=== PATIENT | male | born 1975 | race Caucasian/White ===

== ENCOUNTER 2022-06-15 15:55 | Emergency (ER) | payer MEDICARE, OTHER ==
[2022-06-15 17:13] LABS: HEMOGLOBIN 13.8 gm/dl (14.0-17.5); RED BLOOD COUNT 4.55 M/UL (4.20-5.50); WHITE BLOOD COUNT 8.7 K/UL (4.5-11.0)
[2022-06-15 17:47] LABS: BUN/CREATININE RATIO 13 (0-10)
== END 2022-06-15 17:45 | disposition left against medical advice (07) ==
LOC: ER1 15:55
DX: R07.9 Chest pain, unspecified (principal); Z88.8 Allergy status to other drugs, medicaments and biological substances
CPT/HCPCS: 71045; 80053; 82550; 82553; 84484; 85025; 93005; 99281